=== PATIENT | male | born 1935 | race Caucasian/White ===

== ENCOUNTER 2020-05-21 20:17 | Emergency (ER) | payer MEDICARE, BC ==
[~2020-05-21] VITALS: Ht 162.6 cm; Wt 55.8 kg
--- NOTE | 2020-05-21 20:56 | NUR ---
patient reports only here because his daughter took his temperature it was 102 takes tramodol but no tylenol
--- NOTE | 2020-05-21 21:08 | NUR ---
PT'S GAVE INFORMATION THAT PT DID NOT WHILE IN TRIAGE, AT PT'S BEDSIDE TO SPEAK WITH MD WHEN THEY COME IN TO VOICE HER CONCERNS Addendum: 05/21/20 at 2109 by RPRATHER FAMILY MEMBER AT BEDSIDE IS PT'S DAUGHTER, NOT HIS
[2020-05-21 22:33] LABS: BASOPHILS # (AUTO) 0.1 X10'3 (0-0.2); EOSINOPHILS % (AUTO) 0.1 % (0-6); HEMOGLOBIN 12.8 g/dl (14.0-17.9); LYMPHOCYTES # (AUTO) 1.4 X10'3 (1.1-4.8); LYMPHOCYTES % (AUTO) 15.9 % (21-51); MEAN CORPUSCULAR HEMOGLOBIN 30.8 PG (27.0-31.0); MEAN CORPUSCULAR HGB CONC 33.6 g/dL (33.0-36.5); MEAN CORPUSCULAR VOLUME 91.8 FL (78-98); MEAN PLATELET VOLUME 7.8 FL (7.4-10.4); MONOCYTES # (AUTO) 1.2 X10'3 (0-0.9); NEUTROPHILS # (AUTO) 6.4 X10'3 (1.8-7.7); PLATELET COUNT 355 X10'3 (140-440); RED BLOOD COUNT 4.14 X10'6 (4.70-6.10); RED CELL DISTRIBUTION WIDTH 13.3 % (11.5-14.5); WHITE BLOOD COUNT 9.1 X10'3 (4.5-11.0)
[2020-05-21 22:43] LABS: ALANINE AMINOTRANSFERASE 19 U/L (12-78); ALBUMIN 3.1 G/DL (3.4-5.0); ALBUMIN/GLOBULIN RATIO 0.6 (1.1-1.5); ALKALINE PHOSPHATASE 53 IU/L (46-116); ANION GAP 7 (8-16); ASPARTATE AMINO TRANSFERASE 25 U/L (10-37); BILIRUBIN,TOTAL 0.6 MG/DL (0.1-1.0); BLOOD UREA NITROGEN 24 MG/DL (7-18); BUN/CREATININE RATIO 15.4 (5.4-32.0); CALCIUM 8.6 MG/DL (8.5-10.1); CHLORIDE 92 MMOL/L (99-107); CREATININE 1.56 MG/DL (0.60-1.10); GLUCOSE 114 MG/DL (70-104); POTASSIUM 4.1 MMOL/L (3.5-5.1); SODIUM 128 MMOL/L (135-145); TOTAL CARBON DIOXIDE 29.3 MMOL/L (24-32); eGFR 43 ML/MIN
[2020-05-21 22:55] LABS: CLARITY,URINE CLEAR (Clear); COLOR,URINE YELLOW (Yellow); GLUCOSE, URINE NEGATIVE (Neg); KETONES,URINE TRACE mg/dl (Neg); LEUKOCYTE ESTERASE ,URINE NEGATIVE (Neg); NITRITES, URINE NEGATIVE (Neg); OCCULT BLOOD,URINE TRACE-INTACT (Neg); PROTEIN,URINE TRACE mg/dl (Neg); UROBILINOGEN,URINE 0.2 E.U/dL (0.2-1.0)
[2020-05-21 22:56] LABS: UA COLLECTION TYPE VOIDED
[2020-05-21 23:19] LABS: WBC,URINE 0-4 /HPF (0-4)
[2020-05-21 23:20] LABS: BACTERIA,URINE FEW /HPF (Neg); RBC,URINE 0-2 /HPF (0-2); SQUAMOUS EPITHELIAL CELL,UR FEW /LPF (FEW)
[2020-05-21 23:39] LABS: TROPONIN I < 0.04 NG/ML (0.0-0.05)
[2020-05-21] MEDS ORDERED: CefTRIAXone 1000mg IM Kit (w/lidocaine diluent) IM ONE (23:55)
[2020-05-22] MEDS ORDERED: azithromycin 250mg tablet PO ONE
[2020-05-22] MEDS ORDERED: DOXY100C2 PO (00:05)
[2020-05-22 00:33] VITALS: BP 150/82
== END 2020-05-22 00:35 | disposition home or self-care (01) ==
LOC: ER 20:17
DX: R50.9 Fever, unspecified (principal); A49.9 Bacterial infection, unspecified; R53.83 Other fatigue; Z20.822 Contact with and (suspected) exposure to COVID-19; M06.9 Rheumatoid arthritis, unspecified; N18.9 Chronic kidney disease, unspecified; E87.1 Hypo-osmolality and hyponatremia; Z98.890 Other specified postprocedural states; Z79.2 Long term (current) use of antibiotics
CPT/HCPCS: 36415; 71045; 80053; 81001; 83605; 84145; 84484; 85025; 87635; 96372; 99284; C9803; J0696

== ENCOUNTER 2021-12-10 13:18 | Emergency (ER) | payer MEDICARE, BC ==
[~2021-12-10] VITALS: Ht 160 cm; Wt 53.5 kg
[2021-12-10 14:52] LABS: BASOPHILS # (AUTO) 0.1 X10'3 (0-0.2); BASOPHILS % (AUTO) 0.4 % (0-1); EOSINOPHILS # (AUTO) 0.4 X10'3 (0-0.9); EOSINOPHILS % (AUTO) 2.6 % (0-6); HEMATOCRIT 42.4 % (42.0-52.0); HEMOGLOBIN 13.9 g/dl (14.0-17.9); LYMPHOCYTES # (AUTO) 0.7 X10'3 (1.1-4.8); LYMPHOCYTES % (AUTO) 4.1 % (21-51); MEAN CORPUSCULAR HEMOGLOBIN 30.2 PG (27.0-31.0); MEAN CORPUSCULAR HGB CONC 32.8 g/dL (33.0-36.5); MEAN CORPUSCULAR VOLUME 92.1 FL (78-98); MEAN PLATELET VOLUME 8.7 FL (7.4-10.4); MONOCYTES # (AUTO) 1.8 X10'3 (0-0.9); MONOCYTES % (AUTO) 10.9 % (2-12); NEUTROPHILS # (AUTO) 13.9 X10'3 (1.8-7.7); PLATELET COUNT 280 X10'3 (140-440); WHITE BLOOD COUNT 16.9 X10'3 (4.5-11.0)
[2021-12-10 15:14] LABS: ALANINE AMINOTRANSFERASE 24 U/L (12-78); ALBUMIN 2.9 G/DL (3.4-5.0); ALBUMIN/GLOBULIN RATIO 0.8 (1.1-1.5); ALKALINE PHOSPHATASE 84 IU/L (46-116); ANION GAP 12 (8-16); ASPARTATE AMINO TRANSFERASE 14 U/L (10-37); BILIRUBIN,TOTAL 0.6 MG/DL (0.1-1.0); BLOOD UREA NITROGEN 28 MG/DL (7-18); BUN/CREATININE RATIO 19.7 (5.4-32.0); CALCIUM 9.3 MG/DL (8.5-10.1); CHLORIDE 103 MMOL/L (99-107); CREATININE 1.42 MG/DL (0.60-1.10); GLUCOSE 125 MG/DL (70-104); POTASSIUM 3.9 MMOL/L (3.5-5.1); SODIUM 142 MMOL/L (135-145); TOTAL CARBON DIOXIDE 26.7 MMOL/L (24-32); TOTAL PROTEIN 6.5 G/DL (6.4-8.2); eGFR 47 ML/MIN
[2021-12-10] MEDS ORDERED: normal saline 500ml IV soln 500 ML IV ONE (16:15)
[2021-12-10 17:17] LABS: CLARITY,URINE CLEAR (Clear); COLOR,URINE YELLOW (Yellow); GLUCOSE, URINE NEGATIVE (Neg); KETONES,URINE TRACE mg/dl (Neg); LEUKOCYTE ESTERASE ,URINE NEGATIVE (Neg); NITRITES, URINE NEGATIVE (Neg); OCCULT BLOOD,URINE NEGATIVE (Neg); PROTEIN,URINE TRACE mg/dl (Neg); UA COLLECTION TYPE VOIDED; UROBILINOGEN,URINE 0.2 E.U/dL (0.2-1.0)
[2021-12-10 17:26] LABS: BACTERIA,URINE FEW /HPF (Neg); CAL OXALATE CRYSTALS 3+ /HPF (NEGATIVE); MUCUS STRANDS NONE SEEN /LPF (Neg); RBC,URINE 0-2 /HPF (0-2); SQUAMOUS EPITHELIAL CELL,UR NONE SEEN /LPF (FEW); WBC,URINE 0-4 /HPF (0-4)
[2021-12-10 18:48] LABS: D-DIMER 0.73 MG/L FEU (0-0.50)
--- NOTE | 2021-12-10 21:26 | NUR ---
PT TO CT
[2021-12-10] MEDS ORDERED: CefTRIAXone/D5W-Rocephin 1gm 50 ML IV ONE (22:45)
[2021-12-10] MEDS ORDERED: CEPH250T PO ×2 (22:46)
[2021-12-10 23:51] VITALS: BP 121/81
[2021-12-13] MEDS ORDERED: TRAM50TA2 PO (02:50)
[2021-12-13] MEDS ORDERED: PRED2.5T4 PO (02:50)
[2021-12-13] MEDS ORDERED: CEPH250C PO (02:52)
== END 2021-12-11 00:28 | disposition home or self-care (01) ==
LOC: ER 13:19
DX: R53.1 Weakness (principal); M06.9 Rheumatoid arthritis, unspecified
CPT/HCPCS: 36415; 71045; 74176; 80053; 81001; 83605; 83880; 84145; 84484; 85025; 85379; 87811; 93005; 96365; 99285; J0696; J7040

== ENCOUNTER 2021-12-29 21:27 | Emergency (ER) | payer MEDICARE, BC ==
[~2021-12-29] VITALS: Ht 160 cm; Wt 52.7 kg
[~2021-12-29 21:27] MED LIST: PRED2.5T4 PO; TRAM50TA2 PO
[2021-12-29 22:30] LABS: BASOPHILS # (AUTO) 0.1 X10'3 (0-0.2); BASOPHILS % (AUTO) 0.7 % (0-1); EOSINOPHILS # (AUTO) 0.7 X10'3 (0-0.9); EOSINOPHILS % (AUTO) 5.1 % (0-6); HEMATOCRIT 41.9 % (42.0-52.0); HEMOGLOBIN 13.5 g/dl (14.0-17.9); LYMPHOCYTES # (AUTO) 0.6 X10'3 (1.1-4.8); LYMPHOCYTES % (AUTO) 4.8 % (21-51); MEAN CORPUSCULAR HEMOGLOBIN 29.6 PG (27.0-31.0); MEAN CORPUSCULAR HGB CONC 32.2 g/dL (33.0-36.5); MEAN PLATELET VOLUME 8.3 FL (7.4-10.4); MONOCYTES # (AUTO) 1.2 X10'3 (0-0.9); MONOCYTES % (AUTO) 9.2 % (2-12); NEUTROPHILS # (AUTO) 10.4 X10'3 (1.8-7.7); NEUTROPHILS % (AUTO) 80.2 % (42-75); PLATELET COUNT 344 X10'3 (140-440); RED BLOOD COUNT 4.56 X10'6 (4.70-6.10); RED CELL DISTRIBUTION WIDTH 16.5 % (11.5-14.5)
[2021-12-29 22:53] LABS: ALANINE AMINOTRANSFERASE 14 U/L (12-78); ALBUMIN 2.6 G/DL (3.4-5.0); ALBUMIN/GLOBULIN RATIO 0.7 (1.1-1.5); ALKALINE PHOSPHATASE 86 IU/L (46-116); ANION GAP 7 (8-16); ASPARTATE AMINO TRANSFERASE 15 U/L (10-37); BILIRUBIN,TOTAL 0.4 MG/DL (0.1-1.0); BLOOD UREA NITROGEN 41 MG/DL (7-18); BUN/CREATININE RATIO 29.3 (5.4-32.0); CHLORIDE 97 MMOL/L (99-107); GLUCOSE 93 MG/DL (70-104); POTASSIUM 4.7 MMOL/L (3.5-5.1); SODIUM 134 MMOL/L (135-145); TOTAL CARBON DIOXIDE 29.6 MMOL/L (24-32); TOTAL PROTEIN 6.3 G/DL (6.4-8.2); eGFR 48 ML/MIN
[2021-12-29 22:57] LABS: CALCIUM 12.1 MG/DL (8.5-10.1)
[2021-12-30] MEDS ORDERED: acetaminophen 325mg tablet PO ONE (01:45)
[2021-12-30] MEDS ORDERED: normal saline 1000ML IV soln IVB ONE (01:45)
[2021-12-30 04:00] LABS: CLARITY,URINE CLEAR (Clear); COLOR,URINE YELLOW (Yellow); GLUCOSE, URINE NEGATIVE (Neg); KETONES,URINE TRACE mg/dl (Neg); LEUKOCYTE ESTERASE ,URINE NEGATIVE (Neg); NITRITES, URINE NEGATIVE (Neg); OCCULT BLOOD,URINE SMALL (Neg); PH,URINE 5.5 (4.8-8.0); PROTEIN,URINE NEGATIVE (Neg); UROBILINOGEN,URINE 0.2 E.U/dL (0.2-1.0)
[2021-12-30 04:01] LABS: UA COLLECTION TYPE URINAL
[2021-12-30 04:05] LABS: BACTERIA,URINE NONE SEEN /HPF (Neg); SQUAMOUS EPITHELIAL CELL,UR NONE SEEN /LPF (FEW); WBC,URINE NONE SEEN /HPF (0-4)
[2021-12-30 05:52] VITALS: BP 98/54
== END 2021-12-30 05:55 | disposition home or self-care (01) ==
LOC: ER 21:28
DX: E86.0 Dehydration (principal); Z20.822 Contact with and (suspected) exposure to COVID-19; R53.1 Weakness; M19.90 Unspecified osteoarthritis, unspecified site; Z98.890 Other specified postprocedural states; Z79.899 Other long term (current) drug therapy
CPT/HCPCS: 36415; 71045; 80053; 81001; 82948; 83880; 84145; 84484; 85025; 87635; 96360; 99284; C1758; C9803; J7030; 96361; 96372; 96374; 96375; 96376; 99285; 99291

== ENCOUNTER 2021-12-31 12:00 | Outpatient (CLI) | payer MEDICARE, BC ==
[2021-12-31 16:58] LABS: EOSINOPHILS # (AUTO) 0.4 X10'3 (0-0.9); WHITE BLOOD COUNT 10.6 X10'3 (4.5-11.0)
[2021-12-31 16:59] LABS: BASOPHILS % (AUTO) 0.4 % (0-1); EOSINOPHILS % (AUTO) 4.2 % (0-6); HEMATOCRIT 38.5 % (42.0-52.0); HEMOGLOBIN 12.8 g/dl (14.0-17.9); LYMPHOCYTES # (AUTO) 0.5 X10'3 (1.1-4.8); LYMPHOCYTES % (AUTO) 4.9 % (21-51); MEAN CORPUSCULAR HGB CONC 33.2 g/dL (33.0-36.5); MEAN CORPUSCULAR VOLUME 90.6 FL (78-98); MEAN PLATELET VOLUME 8.4 FL (7.4-10.4); MONOCYTES # (AUTO) 1.2 X10'3 (0-0.9); NEUTROPHILS # (AUTO) 8.4 X10'3 (1.8-7.7); NEUTROPHILS % (AUTO) 79.5 % (42-75); PLATELET COUNT 288 X10'3 (140-440); RED BLOOD COUNT 4.25 X10'6 (4.70-6.10); RED CELL DISTRIBUTION WIDTH 16.1 % (11.5-14.5)
[2021-12-31 17:05] LABS: ALANINE AMINOTRANSFERASE 15 U/L (12-78); ALBUMIN 2.5 G/DL (3.4-5.0); ALBUMIN/GLOBULIN RATIO 0.8 (1.1-1.5); ALKALINE PHOSPHATASE 79 IU/L (46-116); ANION GAP 10 (8-16); ASPARTATE AMINO TRANSFERASE 10 U/L (10-37); BILIRUBIN,TOTAL 0.4 MG/DL (0.1-1.0); BLOOD UREA NITROGEN 46 MG/DL (7-18); BUN/CREATININE RATIO 31.9 (5.4-32.0); CALCIUM 11.3 MG/DL (8.5-10.1); CHLORIDE 98 MMOL/L (99-107); CREATININE 1.44 MG/DL (0.60-1.10); GLUCOSE 95 MG/DL (70-104); POTASSIUM 4.1 MMOL/L (3.5-5.1); SODIUM 136 MMOL/L (135-145); TOTAL PROTEIN 5.8 G/DL (6.4-8.2); eGFR 47 ML/MIN
[2021-12-31 17:33] LABS: ANISOCYTOSIS 1+; PLATELET ESTIMATE NORMAL; TOTAL CELLS COUNTED 100
== END 2021-12-31 23:59 | disposition home or self-care (01) ==
LOC: PRE-OP 12:00 → EDSTATUS 01-05 10:00
PROVIDERS: ATTEND Physician Assistant
DX: R63.4 Abnormal weight loss (principal); R53.1 Weakness; E86.0 Dehydration; E83.52 Hypercalcemia
CPT/HCPCS: 36415; 80053; 83970; 85007; 85025; 85651

== ENCOUNTER 2022-01-01 20:46 | Emergency (ER) | payer MEDICARE, BC ==
[~2022-01-01] VITALS: Ht 160 cm; Wt 53.2 kg
[2022-01-01 22:21] LABS: BASOPHILS # (AUTO) 0.1 X10'3 (0-0.2); BASOPHILS % (AUTO) 0.6 % (0-1); EOSINOPHILS # (AUTO) 0.5 X10'3 (0-0.9); EOSINOPHILS % (AUTO) 4.5 % (0-6); HEMOGLOBIN 13.2 g/dl (14.0-17.9); LYMPHOCYTES # (AUTO) 0.5 X10'3 (1.1-4.8); LYMPHOCYTES % (AUTO) 4.1 % (21-51); MEAN CORPUSCULAR HEMOGLOBIN 30.1 PG (27.0-31.0); MEAN CORPUSCULAR VOLUME 91.4 FL (78-98); MEAN PLATELET VOLUME 8.3 FL (7.4-10.4); MONOCYTES # (AUTO) 1.2 X10'3 (0-0.9); MONOCYTES % (AUTO) 10.5 % (2-12); NEUTROPHILS # (AUTO) 8.9 X10'3 (1.8-7.7); NEUTROPHILS % (AUTO) 80.3 % (42-75); PLATELET COUNT 249 X10'3 (140-440); RED BLOOD COUNT 4.38 X10'6 (4.70-6.10); WHITE BLOOD COUNT 11.1 X10'3 (4.5-11.0)
[2022-01-01 22:31] LABS: ALANINE AMINOTRANSFERASE 16 U/L (12-78); ALBUMIN 2.5 G/DL (3.4-5.0); ALBUMIN/GLOBULIN RATIO 0.7 (1.1-1.5); ALKALINE PHOSPHATASE 79 IU/L (46-116); ANION GAP 6 (8-16); ASPARTATE AMINO TRANSFERASE 12 U/L (10-37); BILIRUBIN,TOTAL 0.6 MG/DL (0.1-1.0); BLOOD UREA NITROGEN 39 MG/DL (7-18); BUN/CREATININE RATIO 31.5 (5.4-32.0); CHLORIDE 98 MMOL/L (99-107); CREATININE 1.24 MG/DL (0.60-1.10); GLUCOSE 114 MG/DL (70-104); POTASSIUM 4.4 MMOL/L (3.5-5.1); SODIUM 135 MMOL/L (135-145); TOTAL CARBON DIOXIDE 31.4 MMOL/L (24-32); eGFR 55 ML/MIN
[2022-01-02] MEDS ORDERED: normal saline 1000ml 1,000 ML IV ONE (04:10)
[2022-01-02] MEDS ORDERED: iohexol 350MG/ML 100ml bottle IV ONE (05:05)
[2022-01-02] MEDS ORDERED: normal saline 1000ML IV soln IVB ONE ×2 (09:25→09:55)
[2022-01-02 10:05] LABS: COLOR,URINE YELLOW (Yellow); GLUCOSE, URINE NEGATIVE (Neg); KETONES,URINE NEGATIVE (Neg); LEUKOCYTE ESTERASE ,URINE NEGATIVE (Neg); NITRITES, URINE NEGATIVE (Neg); OCCULT BLOOD,URINE TRACE-INTACT (Neg); PROTEIN,URINE NEGATIVE (Neg); UROBILINOGEN,URINE 0.2 E.U/dL (0.2-1.0)
[2022-01-02 10:09] LABS: CLARITY,URINE Slightly Cloudy (Clear); UA COLLECTION TYPE CLN CATCH MIDSTREAM
[2022-01-02 10:11] LABS: BACTERIA,URINE NONE SEEN /HPF (Neg); MUCUS STRANDS FEW /LPF (Neg); RBC,URINE 0-2 /HPF (0-2); SQUAMOUS EPITHELIAL CELL,UR FEW /LPF (FEW); STARCH,URINE FEW /HPF (NEGATIVE); WBC,URINE NONE SEEN /HPF (0-4)
[2022-01-02 11:15] VITALS: BP 118/78
== END 2022-01-02 11:16 | disposition home or self-care (01) ==
LOC: ER 20:47
DX: R53.1 Weakness (principal); M06.9 Rheumatoid arthritis, unspecified; R41.0 Disorientation, unspecified; R22.1 Localized swelling, mass and lump, neck
CPT/HCPCS: 36415; 70450; 70491; 71260; 74177; 76700; 80053; 81001; 85025; 96360; 99285; J3490; J7030; Q9967